=== PATIENT | female | born 1945 | race Caucasian/White ===

== ENCOUNTER → 2017-06-24 17:06 | Outpatient (CLI) | payer MEDICARE | END | disposition home or self-care (01) | LOC: D.MAMMO 16:15 | DX: Z12.31 Encounter for screening mammogram for malignant neoplasm of breast (principal) ==

== ENCOUNTER → 2017-06-26 17:36 | Outpatient (CLI) | payer MEDICARE | END | disposition home or self-care (01) | LOC: D.LABREF 17:36 | DX: N39.0 Urinary tract infection, site not specified (principal) ==

== ENCOUNTER → 2017-08-07 17:07 | Outpatient (CLI) | payer MEDICARE ==
[~2017-08-07 17:07] MED LIST: DIOVAN320 MG PO; ELIQUIS2.5 MG PO; HYDROCODONE-APA1 TAB PO; NEURONTIN 300300 MG PO; SYNTHROID88 MCG PO; XALATAN 0.0052.5 ML LEFT EYE; ZOCOR20 MG PO; ZOLOFT50 MG PO
== END | disposition home or self-care (01) ==
LOC: D.MAMMO 13:30
DX: R92.8 Other abnormal and inconclusive findings on diagnostic imaging of breast (principal)

== ENCOUNTER 2017-08-13 17:48 | Inpatient (IN) | payer MEDICARE ==
[2017-08-13 18:32] LABS: BASOPHILS 0.2 % (0-2); EOSINOPHILS 3.8 % (0-7); HEMATOCRIT 41.3 % (36.0-48.0); HEMOGLOBIN 13.6 g/dL (12-16); IMMATURE GRANULOCYTES 0.1 % (0-5); LYMPHOCYTES 16.4 % (15-50); MCH 28.9 pg (26.0-34.0); MCHC 32.9 g/dL (31.0-37.0); MCV 87.7 fL (80.0-100.0); MEAN PLATELET VOLUME 9.7 fL (7.4-10.4); MONOCYTES 8.4 % (2-11); NEUTROPHILS 71.1 % (40-80); PLATELET COUNT 209 10x3/uL (130-400); RBC 4.71 10x6/uL (4.00-5.40); RDW 13.8 % (11.5-14.5); WBC 8.7 10x3/uL (4.8-10.8)
[2017-08-13 18:42] LABS: INR 0.98 (0.85-1.17); PROTIME 12.9 SECONDS (11.6-15.0)
[2017-08-13 19:04] LABS: ALBUMIN 3.9 g/dL (3.4-5.0); ALKALINE PHOSPHATASE 75 U/L (46-116); ALT (SGPT) 18 U/L (10-68); BILIRUBIN - TOTAL 0.35 mg/dL (0.2-1.3); CALC OSMOLALITY 268 mosm/kg (275-300); CALCIUM 8.8 mg/dL (8.5-10.1); CARBON DIOXIDE 25.4 mmol/L (21.0-32.0); CHLORIDE - SERUM 99 mmol/L (98-107); CREATININE - SERUM 1.1 mg/dL (0.6-1.3); POTASSIUM - SERUM 4.2 mmol/L (3.5-5.1); SODIUM 134 mmol/L (136-145); UREA NITROGEN 16 mg/dL (7-18); eGFR NON AFRICAN AMERICAN 51 mL/min (90-120)
[2017-08-13 19:05] LABS: GLUCOSE 103 mg/dL (74-106)
[2017-08-13 19:14] LABS: CREATINE KINASE 86 UL (21-215); PRO BNP 96 pg/mL (0-125)
[2017-08-13 19:23] LABS: TROPONIN-I < 0.017 ng/mL (0.000-0.060)
[2017-08-13 21:36] LABS: APPEARANCE CLEAR (CLEAR); BILIRUBIN NEGATIVE (NEGATIVE); COLOR YELLOW (YELLOW); GLUCOSE NEGATIVE (NEGATIVE); KETONE MODERATE mg/dL (NEGATIVE); NITRITE NEGATIVE (NEGATIVE); PROTEIN NEGATIVE (NEGATIVE); UROBILINOGEN NORMAL (NORMAL)
[2017-08-13 21:46] LABS: BACTERIA FEW /hpf (NONE SEEN); EPITHELIAL CELLS 0-5 /hpf (0-5); RED CELLS - URINE 0-5 /hpf (0-5); WHITE CELLS - URINE 0-5 /hpf (0-5)
--- NOTE | 2017-08-13 22:30 | NUR ---
ASSESSMENT PER ADMIT PACKET. IV PATENT LEFT AC OF NS AT 75CC'S/HR. REC'D TO ROOM 2226 FROM ER DEPT. OLIVA TO BEDSIDE DRAINAGE WITH YELLOW URINE. REMAINS NPO FOR SURGERY.
--- NOTE | 2017-08-13 23:30 | NUR ---
YARD WAREHOUSE WORKER OF DILAUDID SET UP WITH SETTINGS AT 0.2MG Q4HR W/4MG Q4H L/O. PT C/O PAIN LEFT HIP AREA RATES PAIN A #8-10.
[2017-08-13] MEDS ORDERED: XALATAN 0.0052.5 ML LEFT EYE (23:34)
[2017-08-13] MEDS ORDERED: SYNTHROID88 MCG PO (23:34)
[2017-08-13] MEDS ORDERED: ZOCOR20 MG PO (23:35)
[2017-08-13] MEDS ORDERED: ZOLOFT50 MG PO (23:35)
[2017-08-13] MEDS ORDERED: DIOVAN320 MG PO (23:36)
[2017-08-13] MEDS ORDERED: NEURONTIN 300300 MG PO (23:37)
[2017-08-14 01:55] VITALS: BP 143/76; BMI 30.1
--- NOTE | 2017-08-14 05:00 | NUR ---
NPO FOR SURGERY PERMITS SIGNED AND ON CHART. IV PATENT LEFT AC OF NS AT 75CC'S/HR. HIBICLEANSE BATH DONE QUALITY CONTROL SPECIALIST DISCONNECTED. DR. POLANCO HERE TO SPEAK WITH PATENT. HEARING AIDES REMOVES JEWERLY REMOVED AND PLACED IN CONTAINER IN ROOM. EKG DONE AND ON CHART.
--- NOTE | 2017-08-14 05:44 | NUR ---
TO SURGERY PER BED.
[2017-08-14 06:41] VITALS: BP 140/84
--- NOTE | 2017-08-14 06:49 | NUR ---
REC'D PER BED FROM PACU POST OP LEFT HIP CLOSED REDUCTION. VS TAKEN C/O NAUSEA ZOFRAN 4MG IVP GIVEN FOR NAUSEA. MONITOR VS.
--- NOTE | 2017-08-14 07:30 | NUR ---
ASSESSMENT COMPLETE. IV TO L AC PATENT. NS INFUSING AT 30 CC/HR VIA PUMP. ERECTING ENGINEER DILAUDID 0.2-10-4 IN USE FOR PAIN CONTROL. OLIVA PATENT DRAINING YELLOW URINE. ABDUCTION PILLOW IN USE. O2 3L NC IN USE. COMPLAINING OF NAUSEA THAT IS GETTING BETTER AFTER ZOFRAN GIVEN BY NIGHT NURSE. PEDAL PULSES PRESENT.
[2017-08-14 09:18] VITALS: BP 134/75
--- NOTE | 2017-08-14 11:21 | NUR ---
Patient Name: MICHELA CARBAJAL Admission Status: ER Accout number: [id number] Admission Date: 08-13-2017 : 1945 Admission Diagnosis: Attending: OLGA POLANCO Current LOS: 1 Anticipated DC Date: 08-19-2017 Planned Disposition: Home Primary Insurance: [facility] Discharge Planning Comments: CM MET WITH PATIENT REGARDING DISCHARGE NEEDS AND PLANS. PATIENT STATED SHE LIVES WITH HER SPOUSE (INDER) AND HE WILL DRIVE HER HOME AT DISCHARGE. PATIENT STATED THERE ARE NO STEPS OR STAIRS AT HER HOME. PATIENT IS INDEPENDPENT WITH HER CARE AND HAS NO DME AT HOME. PATIENTS PCP IS DR. SHEEHAN AND PHARMACY IS [place]. PATIENT IS REFUSING HOME HEALTH AT THIS TIME. CM WILL CONTINUE TO FOLLOW PATIENT WITH D/C NEEDS AND PLANS. PCP DR. SHEEHAN [facility]- [phone] INDER (SPOUSE) [phone] Electrician Assistant: Jennifer Rider Is the patient Alert and Oriented? Yes 0 * How many steps to enter\exit or inside your home? 0 0 * PCP DR. VIDAL 0 * Pharmacy [facility] 0 * Preadmission Environment Home with Family 0 * ADLs Independent 0 * Equipment None 0 * List name and contact numbers for known caregivers / representatives who currently or will assist patient after discharge: INDER (SPOUSE) [phone] 0 * Community resources currently utilized None 0 * Additional services required to return to the preadmission environment? Yes 0 * Can the patient safely return to the preadmission environment? Yes 0 * Has this patient been hospitalized within the prior 30 days at any hospital? No 0 Grand Total: 0
--- NOTE | 2017-08-14 11:35 | NUR ---
COMPLAINING OF NAUSEA. ZOFRAN GIVEN SLOW IVP.
--- NOTE | 2017-08-14 12:00 | NUR ---
NO CHANGES NOTED AT PRESENT.
[2017-08-14 12:32] VITALS: BP 132/77
--- NOTE | 2017-08-14 15:45 | NUR ---
IV LEAKING. IV REMOVED. CATHETER TIP INTACT. IV SITED TO R HAND WITH 22 GAUGE X 2 ATTEMPTS. BRACE APPLIED BY DISHA FROM RODGER BRACE AND LIMB.
--- NOTE | 2017-08-14 17:00 | NUR ---
RESTING QUIETLY. DENIES ANY NEEDS AT THIS TIME.
[2017-08-14 17:28] VITALS: BP 137/70
[2017-08-14 20:00] VITALS: BP 90/61
--- NOTE | 2017-08-14 20:00 | NUR ---
ASSESSMENT PER FLOWSHEET. IV PATENT RT ARM OF 1/2NS AT 30CC'S/HR SITE CLEAR CQ DEVELOPER OF DILAUDID IN USE FOR PAIN CONTROL WITH SETTINGS AT 0.2MG Q10MIN W/4MG Q4HR L/O.LEFT HIP BRACE IN PLACE SR UP X2 CALL LIGHT WITHIN REACH BED ALARM BED ACTIVATED.
--- NOTE | 2017-08-14 22:00 | NUR ---
REPOSITIONED FOR COMFORT. SR UP X2 CALL LIGHT WITHIN REACH.
[2017-08-15] VITALS: BP 119/71; BP 129/62
--- NOTE | 2017-08-15 | NUR ---
EYES CLOSED RESPIRATIONS WITH EASE AND UNLABORED. O2 ON 3L/M PER NC. SCD'S ON.
[2017-08-15 04:00] VITALS: BP 119/71
--- NOTE | 2017-08-15 04:00 | NUR ---
REPOSITIONED IN BED DENIES NEEDS.
[2017-08-15 05:16] LABS: HEMOGLOBIN 12.7 g/dL (12-16); MCH 29.1 pg (26.0-34.0); MCHC 32.6 g/dL (31.0-37.0); MCV 89.4 fL (80.0-100.0); MEAN PLATELET VOLUME 9.8 fL (7.4-10.4); RBC 4.36 10x6/uL (4.00-5.40); RDW 14.3 % (11.5-14.5); WBC 10.6 10x3/uL (4.8-10.8)
--- NOTE | 2017-08-15 06:00 | NUR ---
NO CHANGES IN ASSESSMENT RESTING QUIETLY.
--- NOTE | 2017-08-15 07:20 | NUR ---
RESTING QUIETLY IN BED. DENIES ANY NEEDS AT THIS TIME.
[2017-08-15] MEDS ORDERED: ELIQUIS2.5 MG PO (08:20)
[2017-08-15] MEDS ORDERED: HYDROCODONE-APA1 TAB PO (08:21)
[2017-08-15 08:30] VITALS: BP 127/64
--- NOTE | 2017-08-15 09:00 | NUR ---
ASSESSMENT COMPLETE. IV TO R HAND PATENT. IV CONVERTED TO SL. GARMENT ALTERATION EXAMINER DILAUDID TURNED OFF. INSTRUCTED TO NOTIFY NURSE OF NEED OF PAIN MEDICATION. BRACE TO HIP IN USE. SCD'S IN USE TO BILAT LEGS.
--- NOTE | 2017-08-15 09:01 | NUR ---
OLIVA CATHETER DC'D. CATHETER TIP INTACT.
--- NOTE | 2017-08-15 10:16 | NUR ---
CM REASSESSMENT NOTE: PATIENT IS DISCHARGING HOME TODAY WITH [facility] (MASHA SIGNED). CM CHECKED AGAIN TO SEE IF SHE HAD A WALKER AND SHE STATED SHE DID. PT IS OK WITH PATIENT HAVING HOME HEALTH. PATIENTS SPOUSE IS DRIVING HER HOME TODAY. PATIENT HAD NO OTHER NEEDS FOR DISCHARGE.
--- NOTE | 2017-08-15 11:01 | NUR ---
RESTING QUIETLY IN BED. DENIES ANY COMPLAINT OF PAIN AT THIS TIME. FAMILY AT BEDSIDE. WILL DC HOME AFTER VOIDING.
--- NOTE | 2017-08-15 12:00 | NUR ---
ASSISTED UP TO BATHROOM. VOIDED WITHOUT DIFFICULTY.
[2017-08-15 12:01] VITALS: BP 113/63
--- NOTE | 2017-08-15 12:10 | NUR ---
SL REMOVED. CATHETER TIP INTACT. DISCHARGE TEACHING GIVEN TO PATIENT AND . SCRIPTS FOR ELIQUIS AND HYDROCODONE GIVEN TO PATIENT. ELIQUIS COUPON ALSO GIVEN TO PATIENT. VOICED UNDERSTANDING OF INSTRUCTIONS.
--- NOTE | 2017-08-15 12:22 | NUR ---
DC'D HOME WITH . ESCORTED TO VEHICLE BY VOLUNTEER VIA WC WITH BELONGINGS AND SCRIPTS.
--- NOTE | 2017-08-16 10:57 | OP ---
PATIENT NAME: MICHELA CARBAJAL MEDICAL RECORD: [id number] :[birth year] LOCATION:D.MS [id number] ADMISSION DATE:08/13/17 SURGEON: OLGA POLANCO MD DATE OF OPERATION: 08/13/2017 PREOPERATIVE DIAGNOSIS: Left hip dislocation, status post total hip arthroplasty. POSTOPERATIVE DIAGNOSIS: Left hip dislocation, status post total hip arthroplasty. PROCEDURE: Closed reduction under anesthesia. SURGEON: Olga Polanco MD ANESTHESIA: TIVA. INTRAOPERATIVE COMPLICATIONS: None. SUMMARY OF PATHOLOGIC FINDINGS: Essentially none. The hip was back in place and was stable and radiographs were taken and submitted for final radiologist review. Abduction pillow was applied. OPERATIVE SUMMARY IN DETAIL: After obtaining the appropriate preoperative orthopedic consents as well as anesthetic consultation, evaluation and clearance, the patient was brought to the operating room and placed on operating table in supine position. After adequate general TIVA anesthesia was administered, traction countertraction was utilized to pull the hip back into place. The hip reduced nicely. Fluoroscopy was then utilized to verify the hip in its normal position and in the acetabular cup. Having completed this, abduction pillow was applied. The patient was awakened, taken to recovery room in stable condition. All final needle and sponge counts were correct. TRANSINT:[id number] Voice Confirmation ID: [id number] DOCUMENT ID: [id number] OLGA POLANCO MD at 1057 CC: [id number] DICTATION DATE: 08/14/17 0603 RN MDS COORDINATOR: 08/14/17 0832 DIS IN 08/15/17 [id number] [place] [address]
== END 2017-08-15 12:22 | disposition home health service (06) | DRG 561 ==
LOC: D.ER 17:48 → D.MS 20:19 → D.SDCHOLD 20:19 → D.MS 08-14 00:17
PROVIDERS: Nurse Practitioner Family; ADMIT Orthopaedic Surgery
PROC: 0SWSXJZ Revision of Synthetic Substitute in Left Hip Joint, Femoral Surface, External Approach (ICD-10-PCS; principal; 2017-08-14 05:30)
DX: T84.021A Dislocation of internal left hip prosthesis, initial encounter (principal); I10 Essential (primary) hypertension; K21.9 Gastro-esophageal reflux disease without esophagitis

== ENCOUNTER → 2018-03-10 10:19 | Outpatient (CLI) | payer MEDICARE | END | disposition home or self-care (01) | LOC: D.MAMMO 09:00 | DX: Z12.31 Encounter for screening mammogram for malignant neoplasm of breast (principal) ==

== ENCOUNTER 2019-02-01 15:55 | Inpatient (IN) | payer MEDICARE ==
[2019-02-01] VITALS: BP 133/71
[~2019-02-01] VITALS: Ht 160 cm; Wt 77.0 kg
[2019-02-01] MEDS ORDERED: UNK BP MED (16:00)
[2019-02-01 16:55] LABS: BASOPHILS 0.2 % (0-2); HEMATOCRIT 37.4 % (36.0-48.0); HEMOGLOBIN 12.5 g/dL (12-16); IMMATURE GRANULOCYTES 0.1 % (0-5); LYMPHOCYTES 11.6 % (15-50); MCH 28.2 pg (26.0-34.0); MCHC 33.4 g/dL (31.0-37.0); MCV 84.2 fL (80.0-100.0); MEAN PLATELET VOLUME 9.2 fL (7.4-10.4); MONOCYTES 5.3 % (2-11); NEUTROPHILS 79.8 % (40-80); PLATELET COUNT 201 10x3/uL (130-400); RBC 4.44 10x6/uL (4.00-5.40); RDW 14.2 % (11.5-14.5); WBC 10.6 10x3/uL (4.8-10.8)
--- NOTE | 2019-02-01 17:00 | NUR ---
PT MOVED TO TRAUMA ROOM 1
[2019-02-01 17:15] LABS: ALBUMIN 3.6 g/dL (3.4-5.0); BILIRUBIN - TOTAL 0.34 mg/dL (0.2-1.3); CALCIUM 8.5 mg/dL (8.5-10.1); CARBON DIOXIDE 25.2 mmol/L (21.0-32.0); CREATININE - SERUM 1.1 mg/dL (0.6-1.3); POTASSIUM - SERUM 4.2 mmol/L (3.5-5.1); PROTEIN - SERUM 7.3 g/dL (6.4-8.2)
[2019-02-01 18:08] VITALS: BP 164/97
--- NOTE | 2019-02-01 18:26 | NUR ---
PT LAYING IN BED RESPIRATIONS ARE EVEN AND UNLABORED. NO DISTRESS NOTED AT THIS TIME. PT FAMILY MEMBER AT BEDSIDE. VSS. COLOR WNL FOR RACE. WILL CONTINUE TO MONITOR.
--- NOTE | 2019-02-01 18:49 | NUR ---
ANESTHESIA AND DR. FINCH AT BEDSIDE TO ATTEMPT TO PERFORM REDUCTION OF LEFT HIP.
--- NOTE | 2019-02-01 18:49 | NUR ---
VERSED 5MG/ FENTANYL 100MCG GIVEN IV BY DAVID COURTNEY CRNA.
--- NOTE | 2019-02-01 18:55 | NUR ---
UNNSUCCESFUL IN REDUCTION OF LEFT HIP. PER DR. PIZANO WILL PREP PATIENT FOR SURGERY.
--- NOTE | 2019-02-01 19:55 | NUR ---
ATTEMPTED TO CONTACT TO RETURN TO ED. UNABLE TO CONTACT AT THIS TIME.
[2019-02-01 21:11] VITALS: BP 153/79
--- NOTE | 2019-02-01 21:19 | NUR ---
WHILE PLACING OLIVA PATIENT WAS ALREADY IN ABDUCTION PILLOW, THIS CAUSED DIFFICULTY IN PLACING CATHETER, CATHETER PLACED PER MIKAEL JOHNSON AND LUISA LUZ.
--- NOTE | 2019-02-01 21:30 | NUR ---
RECEIVED PT TO FLOOR FROM OR. ABDUCTOR PILLOW IN PLACE. VITAL SIGNS STABLE. C/O PAIN 06/13. GAVE MORPHINE 2 MG IV PUSH. NO OTHER NEEDS. WILL CONTINUE TO MONITOR.
[2019-02-02 01:51] VITALS: BP 153/79; Ht 160 cm; Wt 77.0 kg
[2019-02-02 03:00] VITALS: BP 110/64
[2019-02-02 05:15] LABS: BASOPHILS 0.1 % (0-2); EOSINOPHILS 0.1 % (0-7); HEMATOCRIT 38.2 % (36.0-48.0); HEMOGLOBIN 12.5 g/dL (12-16); IMMATURE GRANULOCYTES 0.3 % (0-5); LYMPHOCYTES 2.7 % (15-50); MCHC 32.7 g/dL (31.0-37.0); MCV 85.5 fL (80.0-100.0); MEAN PLATELET VOLUME 9.7 fL (7.4-10.4); MONOCYTES 5.5 % (2-11); NEUTROPHILS 91.3 % (40-80); PLATELET COUNT 220 10x3/uL (130-400); RBC 4.47 10x6/uL (4.00-5.40); RDW 14.2 % (11.5-14.5)
[2019-02-02 05:25] LABS: ANION GAP 13.2 mmol/L (8-16); CALCIUM 8.2 mg/dL (8.5-10.1); CARBON DIOXIDE 25.4 mmol/L (21.0-32.0); CREATININE - SERUM 1.1 mg/dL (0.6-1.3); POTASSIUM - SERUM 3.6 mmol/L (3.5-5.1)
[2019-02-02 05:31] LABS: WBC 17.7 10x3/uL (4.8-10.8)
--- NOTE | 2019-02-02 08:07 | NUR ---
AWAKE AND ALERT. ORIENTED X3. NO C/O AT THIS TIME. LUNGS ARE CLEAR BILATERALLY, NO COUGH NOTED. SKIN IS INTACT WITHOUT REDNESS. SL TO RIGHT HAND IS PATENT WITHOUT REDNESS AT INSERTION SITE. ABDUCTION PILLOW IN PLACE. DENEIES NEEDS.
[2019-02-02 08:44] VITALS: BP 116/60
--- NOTE | 2019-02-02 09:58 | NUR ---
ATE ALL OF BREAKFAST. DENIES NEEDS. ABDUCTOR BRACE BEING FITTED AT THIS TIME.
--- NOTE | 2019-02-02 10:33 | NUR ---
OLIVA D/C WITH TIP INTACT WITHOUT DIFFICULTY. UP TO BR WITH RW ABDUCTION BRACE IN PLACE. ENCOURAGED TO NOT PUT FULL WEIGHT ON LEFT HIP.
--- NOTE | 2019-02-02 13:19 | NUR ---
DISCHARGED TO HOME AMBULATORY WITH WITH BRACE IN PLACE. DISCHARGE INSTRUCTIONS GIVEN BOTH VERBALLY AND WRITTEN. ALL QUESTIONS ANSWERED. PATIENT AND VERBALIZED UNDERSTANDING OF SAME. INSTRUCTED TO GO BY DR. FINCH'S OFFICE FOR PRESCRIPTIONS FOR PAIN MEDS. SL TO RIGHT HAND D/C WITH CATHETER INTACT. WAS UP TO BR WITH STAFF AND VOIDED WITHOUT DIFFICULTY. ALL BELONGINGS WITH PATIENT.
== END 2019-02-02 13:22 | disposition home or self-care (01) | DRG 561 ==
LOC: D.ER 15:55 → OBSVTIME 18:58 → D.EDHOLD 18:58 → D.MS 20:37
PROVIDERS: Family Medicine; ADMIT Orthopaedic Surgery; ATTEND Orthopaedic Surgery
PROC: 0SWBXJZ Revision of Synthetic Substitute in Left Hip Joint, External Approach (ICD-10-PCS; principal; 2019-02-01 20:00)
DX: T84.021A Dislocation of internal left hip prosthesis, initial encounter (principal); Y83.8 Other surgical procedures as the cause of abnormal reaction of the patient, or of later complication, without mention of misadventure at the time of the procedure; E03.9 Hypothyroidism, unspecified; I10 Essential (primary) hypertension

== ENCOUNTER 2020-01-09 19:08 | Observation (INO) | payer MEDICARE ==
[~2020-01-09] VITALS: Ht 160 cm; Wt 71.2 kg
[~2020-01-09 19:08] MED LIST changes: +UNK BP MED
[2020-01-09 21:00] VITALS: BP 145/56
--- NOTE | 2020-01-09 21:53 | NUR ---
CONSENT SIGNED FOR PROCEDURE. PT INFORMED WE ARE WAITING ON MD
--- NOTE | 2020-01-09 22:00 | NUR ---
TIME OUT FOR PROCEDURE, MD AND ANESTHSIA AT BEDSIDE.
[2020-01-09 22:29] VITALS: BP 142/68
--- NOTE | 2020-01-09 22:30 | NUR ---
PT BACK TO BASELINE. PT STATES THAT PAIN HAS IMMENSELY IMPROVED JUST FEELS SORE. INFORMED.
[2020-01-09 23:00] VITALS: BP 162/85
--- NOTE | 2020-01-09 23:00 | NUR ---
PT PLACED IN LEG ABDUCTOR PILLOW. TOLERATED WELL
--- NOTE | 2020-01-10 | NUR ---
REC'D PATIENT FROM ER. TRANS PATIENT TO BED FROM STRETCHER WITH TWO OTHER NURSES. PILLOW IN PLACE. COMPLETED ADMISSION. PLACED PUREWICK CATH. PATIENT DENIES PAIN AT THIS TIME. PATIENT DENIES OTHER NEEDS AT THIS TIME. BED IN LOWEST POSITION AND CALL LIGHT WITHIN REACH. ENCOURAGED THE PATIENT TO CALL IF SHE HAS NEEDS. WILL CONTINUE TO MONITOR.
[2020-01-10 00:06] VITALS: BP 147/76; Ht 160 cm; Wt 71.2 kg
[2020-01-10] MEDS ORDERED: AMBIEN5 MG PO (00:19)
--- NOTE | 2020-01-10 00:53 | NUR ---
BROUGHT PATIENT PILLOW PER HER REQUEST. PATIENT DENIES PAIN AT THIS TIME. BED IN LOWEST POSITION AND CALL LIGHT WITHIN REACH. ENCOURAGED THE PATIENT TO CALL IF SHE HAS NEEDS, WILL CONTINUE TO MONITOR.
--- NOTE | 2020-01-10 03:00 | NUR ---
PATIENT RESTING IN BED WITH EYES CLOSED AND NO S/S OF DISTRESS. WILL CONTINUE TO MONITOR.
[2020-01-10 05:08] VITALS: BP 139/69
--- NOTE | 2020-01-10 05:16 | NUR ---
PATIENT RESTING IN BED WITH NO S/S OF DISTRESS. PATIENT STATED SHE IS A "LITTLE ACHY" WHEN ASKED ABOUT PAIN, HOWEVER, REFUSES PAIN MEDS AT THIS TIME. BED IN LOWEST POSITION AND CALL LIGHT WITHIN REACH. ENCOURAGED THE PATIENT TO CALL IF SHE HAS NEEDS. WILL CONTINUE TO MONITOR.
[2020-01-10 05:24] LABS: BASOPHILS 0.2 % (0-2); EOSINOPHILS 0.9 % (0-7); IMMATURE GRANULOCYTES 0.2 % (0-5); LYMPHOCYTES 12.8 % (15-50); MCHC 33.3 g/dL (31.0-37.0); MCV 84.1 fL (80.0-100.0); MEAN PLATELET VOLUME 9.4 fL (7.4-10.4); MONOCYTES 10.9 % (2-11); PLATELET COUNT 256 10x3/uL (130-400); RBC 4.28 10x6/uL (4.00-5.40); RDW 14.1 % (11.5-14.5); WBC 10.2 10x3/uL (4.8-10.8)
[2020-01-10 05:45] LABS: ALBUMIN 3.4 g/dL (3.4-5.0); BILIRUBIN - TOTAL 0.37 mg/dL (0.2-1.3); CALCIUM 8.7 mg/dL (8.5-10.1); CARBON DIOXIDE 24.7 mmol/L (21.0-32.0); POTASSIUM - SERUM 4.7 mmol/L (3.5-5.1); PROTEIN - SERUM 6.6 g/dL (6.4-8.2)
--- NOTE | 2020-01-10 08:27 | NUR ---
PT ALERT X 4. BREATH SOUNDS CLEAR BILAT. IV TO LEFT FOREARM, PATENT, DRESSING CDI. PT REPORTING NO PAIN AT THIS TIME. BED LOW, CALL LIGHT IN REACH. NO OTHER NEEDS AT THIS TIME.
[2020-01-10 09:20] VITALS: BP 115/66
--- NOTE | 2020-01-10 09:43 | MORECARE ---
CASE MANAGEMENT DISCHARGE SUMMARY PATIENT: MICHELA ORDONEZ UNIT: [id number] ADM DATE: 01/09/20 AGE: 74 : 44 SEX: F ROOM/BED: D.1210 AUTHOR: PEREZ AQUINO PHYSICIAN: REFERRING PHYSICIAN: OLGA POLANCO MD DATE OF SERVICE: 01/10/20 Discharge Plan Patient Name: MICHELA ORDONEZ [facility] [facility] 1945 Planned Disposition: Anticipated Discharge Date: Discharge Date: Expected LOS: Initial Reviewer: [email or web address] Initial Review Date: 01/09/2020 Generated: 01/10/20 10:42 am Coverage Notice Reviewer: [email or web address] - Agnieszka Viveros Notice Issued Date-Time: 01/10/2020 9:23 Notice Type: Medicare Outpatient Observation Notice Notice Delivered To: Patient Relationship to Patient: Self Production Planner Scheduler Name: Michela Ordonez Delivery Method: HAND - Hand Delivered Shila Days: Prior Verbal Notification: Recipient Understood Notice: Yes Recipient Signature: Yes Med Rec Note Co-signed by Attending: Coverage Notice Comment: HARLEY delivered to and signed by patient. Original given to patient and one placed on the chart. Patient Name: MICHELA ORDONEZ Page [phone] at 0943 All edits/amendments must be made on the electronic document DICTATION DATE: 01/10/20941 APPRAISER L[place]: KATE 01/10/20941 RPT#: [id number] DC DATE: STATUS: ADM IN [facility] [address] [place] [address] END OF REPORT
--- NOTE | 2020-01-10 12:00 | NUR ---
DISCHARGE PAPERWORK SIGNED, ALL QUESTIONS ANSWERED. IV TO LEFT FOREARM DC'D, TIP INTACT. ESCORTED OUT VIA WHEELCHAIR.
--- NOTE | 2020-01-10 17:02 | MORECARE ---
CASE MANAGEMENT DISCHARGE SUMMARY PATIENT: MICHELA ORDONEZ UNIT: [id number] ADM DATE: 01/09/20 AGE: 74 : 44 SEX: F ROOM/BED: D.1210 AUTHOR: PEREZ AQUINO PHYSICIAN: REFERRING PHYSICIAN: OLGA POLANCO MD DATE OF SERVICE: 01/10/20 Discharge Plan Patient Name: MICHELA ORDONEZ Facility: [facility]:[place] : 1945 Planned Disposition: Home or Self Care Anticipated Discharge Date: 01/10/20 Discharge Date: 01/10/2020 Expected LOS: 1 Initial Reviewer: [email or web address] Initial Review Date: 01/09/2020 Generated: 01/10/20 6:02 pm Coverage Notice Reviewer: [email or web address] Vern Viveros Notice Issued Date-Time: 01/10/2020 9:23 Notice Type: Medicare Outpatient Observation Notice Notice Delivered To: Patient Relationship to Patient: Self Maintainer [employer] Name: Michela Ordonez Delivery Method: HAND - Hand Delivered Shila Days: Prior Verbal Notification: Recipient Understood Notice: Yes Recipient Signature: Yes Med Rec Note Co-signed by Attending: Coverage Notice Comment: HARLEY delivered to and signed by patient. Original given to patient and one placed on the chart. Last DP export: 01/10/20 8:43 am Patient Name: MICHELA ORDONEZ Page [phone] at 1702 All edits/amendments must be made on the electronic document DICTATION DATE: 01/10/201701 PRODUCTION TRAINER: KATE 01/10/201701 RPT#: [id number] DC DATE:01/10/20 STATUS: DIS IN [facility] [address] [place] [address] END OF REPORT
== END 2020-01-10 14:01 | disposition home or self-care (01) ==
LOC: D.ER 19:08 → D.M3 22:19 → OBSVTIME 22:19 → D.M3 22:19
PROVIDERS: Emergency Medicine; ADMIT Orthopaedic Surgery; ATTEND Orthopaedic Surgery
DX: S73.005A Unspecified dislocation of left hip, initial encounter (principal); X58.XXXA Exposure to other specified factors, initial encounter; I10 Essential (primary) hypertension

== ENCOUNTER 2020-03-02 18:31 | Observation (INO) | payer MEDICARE ==
[2020-03-02] VITALS (9 sets, daily range): BP systolic 130–182; BP diastolic 59–96; Ht 160 cm; Wt 72.7 kg
[~2020-03-02] VITALS: Ht 160 cm; Wt 72.7 kg
[~2020-03-02 18:31] MED LIST changes: +AMBIEN5 MG PO
--- NOTE | 2020-03-02 18:54 | NUR ---
PATIENT FELL EARLY THIS MORNING, IMMEDIATE PAIN TO LEFT HIP, DEFORMITY, PULSES PRESENT.
[2020-03-02 18:55] LABS: BASOPHILS 0.1 % (0-2); EOSINOPHILS 0.1 % (0-7); HEMATOCRIT 39.8 % (36.0-48.0); HEMOGLOBIN 13.4 g/dL (12-16); IMMATURE GRANULOCYTES 0.3 % (0-5); MCH 27.8 pg (26.0-34.0); MCHC 33.7 g/dL (31.0-37.0); MCV 82.6 fL (80.0-100.0); MONOCYTES 6.3 % (2-11); NEUTROPHILS 86.2 % (40-80); RBC 4.82 10x6/uL (4.00-5.40); RDW 13.8 % (11.5-14.5); WBC 12.4 10x3/uL (4.8-10.8)
[2020-03-02 19:05] LABS: ANION GAP 18.4 mmol/L (8-16); CALCIUM 9.1 mg/dL (8.5-10.1); CARBON DIOXIDE 21.4 mmol/L (21.0-32.0); POTASSIUM - SERUM 3.8 mmol/L (3.5-5.1)
[2020-03-02 19:11] LABS: PLATELET COUNT 310 10x3/uL (130-400)
[2020-03-02 19:12] LABS: ALBUMIN 3.7 g/dL (3.4-5.0); BILIRUBIN - TOTAL 0.55 mg/dL (0.2-1.3); PROTEIN - SERUM 7.4 g/dL (6.4-8.2)
--- NOTE | 2020-03-02 19:15 | NUR ---
DR. FALLON TO BEDSIDE, CONSENT PACKET PRINTED AND SIGNED. MOVED TO T3
--- NOTE | 2020-03-02 19:39 | NUR ---
LEFT HIP REDUCTION, MD AND ANESTHSIA TO BEDSIDE, PT STABLE
--- NOTE | 2020-03-02 19:39 | NUR ---
TIME OUT DONE, PATIENT, DOCTOR, ANESTHSIA, X-RAY AA
--- NOTE | 2020-03-02 19:44 | NUR ---
LEFT HIP IN PLACE, X-RAY TECH AT BEDSIDE,
--- NOTE | 2020-03-02 19:50 | NUR ---
ANESTHSIA AT BEDSIDE, PROCEDURE FINISHED.
--- NOTE | 2020-03-02 19:56 | NUR ---
PATIENT IS A + O X3, VITAL SIGNS STABLE,
--- NOTE | 2020-03-02 20:08 | NUR ---
PATIENT VERBALIZES APPROPRIATELY, CALLING HER SON FROM HER CELL PHONE, DENIES PAIN AT THIS TIME.
--- NOTE | 2020-03-02 20:13 | NUR ---
PATIENT IS STABLE, STILL ON HER CELL PHONE TALKING WITH HER SON
--- NOTE | 2020-03-02 20:21 | NUR ---
RN HAS STAYED AT BEDSIDE WITH PATIENT, PATIENT DENIES PAIN AT THIS TIME, VITAL SIGNS STABLE,
--- NOTE | 2020-03-02 21:15 | NUR ---
PT BROUGHT TO FLOOR VIA STRETCHER, A0X4. HIP ADDUCTOR PILLOW IN PLACE. TRANSFERED PT TO BED. POSITION FOR COMFORT. PUREWICK PLACED. NON SLIP SOCKS AND PLEXI BOOTS PLACED ON. IV RIGHT AC SL, FLUSHES EASILY. DENIES PAIN AT THIS TIME. O2 2L/NC. PROVIDED PT WITH PUDDING AND WATER. PT HAS HEARING AIDS IN, SET UP DYE BLENDER AND PHONE WITH DYE BLENDER AT BEDSIDE. PT DENIES OTHER NEEDS AT THIS TIME. CL IN REACH, WILL CTM
[2020-03-02] MEDS ORDERED: PROTONIX40 MG PO (21:26)
[2020-03-02] MEDS ORDERED: INDOCIN25 MG PO (21:26)
[2020-03-02] MEDS ORDERED: CRESTOR5 MG PO (21:26)
[2020-03-02] MEDS ORDERED: DIOVAN160 MG PO (21:27)
[2020-03-02] MEDS ORDERED: NORVASC2.5 MG PO (21:28)
--- NOTE | 2020-03-02 23:00 | NUR ---
NURSE PRACTIONER AT BEDSIDE AT THIS TIME TO SEE PT
[2020-03-03] VITALS: BP 129/66
--- NOTE | 2020-03-03 00:25 | NUR ---
PT LYING IN BED RESTING WITHOUT DISTRESS OR NEEDS, WILL CTM
[2020-03-03 04:00] VITALS: BP 144/66
--- NOTE | 2020-03-03 05:10 | NUR ---
REPOSITIONED PT FOR COMFORT, ADDUCTOR PILLOW IN PLACE. DENIES OTHER NEEDS. CL IN REACH, WILL CTM
[2020-03-03 05:51] LABS: BASOPHILS 0.3 % (0-2); HEMATOCRIT 38.8 % (36.0-48.0); HEMOGLOBIN 12.6 g/dL (12-16); IMMATURE GRANULOCYTES 0.2 % (0-5); LYMPHOCYTES 12.7 % (15-50); MCH 27.6 pg (26.0-34.0); MCHC 32.5 g/dL (31.0-37.0); MEAN PLATELET VOLUME 9.1 fL (7.4-10.4); MONOCYTES 11.6 % (2-11); NEUTROPHILS 74.2 % (40-80); PLATELET COUNT 294 10x3/uL (130-400); RBC 4.56 10x6/uL (4.00-5.40); RDW 14.4 % (11.5-14.5); WBC 9.6 10x3/uL (4.8-10.8)
[2020-03-03 05:53] LABS: MCV 85.1 fL (80.0-100.0)
[2020-03-03 06:09] LABS: ANION GAP 11.4 mmol/L (8-16); CALCIUM 8.9 mg/dL (8.5-10.1); CARBON DIOXIDE 25.6 mmol/L (21.0-32.0); MAGNESIUM - SERUM 2.2 mg/dL (1.8-2.4)
[2020-03-03 07:22] VITALS: BP 129/67
--- NOTE | 2020-03-03 07:35 | NUR ---
AWAKE AND ALERT. ORIENTED X3. NO C/O AT THIS TIME. LUNGS ARE CLEAR BILATERALLY, NO COUGH NOTED. SKIN IS INTACT WITHOUT REDNESS. PUREWICK IN PLACE WITH CLEAR YELLOW URINE. SL TO RIGHT AC IS PATENT WITHOUT REDNESS AT INSERTION SITE. DENIES NEEDS. BREAKFAST SERVED IN ROOM.
--- NOTE | 2020-03-03 09:45 | NUR ---
AMBULATED IN HALLWAY WITH PT WITH ABDUCTOR BRACE IN PLACE. SITTING UP IN CHAIR AT BEDSIDE.
--- NOTE | 2020-03-03 11:00 | NUR ---
DISCHARGE ORDERS RECEIVED. SL TO RIGHT AC D/C WITH CATHETER INTACT. ANXIOUS TO GET HOME.
--- NOTE | 2020-03-03 12:00 | NUR ---
DISCHARGED TO HOME WITH SON AMBULATORY. ABDUCTOR BRACE IN PLACE TO LEFT HIP. DISCHARGE INSTRUCTIONS GIVEN BOTH VERBALLY AND WRITTEN. PATIENT VERBALIZED UNDERSTANDING OF SAME. ALL QUESTIONS ANSWERED. NO NEW PRESCRIPTIONS NEEDED. ALL BELONGING WITH PATIENT.
== END 2020-03-03 12:00 | disposition home or self-care (01) ==
LOC: D.ER 18:31 → D.M3 20:26 → OBSVTIME 20:26 → D.M3 03-03 12:00
PROVIDERS: Family Medicine; ADMIT Family Medicine; ATTEND Family Medicine
DX: T84.021A Dislocation of internal left hip prosthesis, initial encounter (principal); X58.XXXA Exposure to other specified factors, initial encounter; I10 Essential (primary) hypertension; E78.5 Hyperlipidemia, unspecified; E03.9 Hypothyroidism, unspecified; G47.00 Insomnia, unspecified; F32.9 Major depressive disorder, single episode, unspecified; E87.1 Hypo-osmolality and hyponatremia

== ENCOUNTER → 2020-03-10 17:40 | Outpatient (CLI) | payer MEDICARE ==
[2020-03-02 21:33] VITALS: BMI 28.4
[~2020-03-10 17:40] MED LIST changes: +CRESTOR5 MG PO; +DIOVAN160 MG PO; +INDOCIN25 MG PO; +NORVASC2.5 MG PO; +PROTONIX40 MG PO
== END | disposition home or self-care (01) ==
LOC: D.LABREF 17:40
PROVIDERS: ATTEND Orthopaedic Surgery
DX: M16.12 Unilateral primary osteoarthritis, left hip (principal)

== ENCOUNTER 2020-03-14 12:52 | Inpatient (IN) | payer MEDICARE ==
[~2020-03-14] VITALS: Ht 157.5 cm; Wt 71.7 kg
[2020-03-30 12:12] LABS: BASOPHILS 0.2 % (0-2); HEMATOCRIT 40.4 % (36.0-48.0); HEMOGLOBIN 13.3 g/dL (12-16); IMMATURE GRANULOCYTES 0.3 % (0-5); LYMPHOCYTES 16.1 % (15-50); MCH 27.7 pg (26.0-34.0); MCHC 32.9 g/dL (31.0-37.0); MEAN PLATELET VOLUME 9.1 fL (7.4-10.4); MONOCYTES 6.9 % (2-11); NEUTROPHILS 74.5 % (40-80); PLATELET COUNT 253 10x3/uL (130-400); RBC 4.81 10x6/uL (4.00-5.40); RDW 13.8 % (11.5-14.5); WBC 9.7 10x3/uL (4.8-10.8)
[2020-03-30 12:20] LABS: BILIRUBIN NEGATIVE (NEGATIVE); GLUCOSE NEGATIVE (NEGATIVE); KETONE NEGATIVE (NEGATIVE); NITRITE NEGATIVE (NEGATIVE); UROBILINOGEN NORMAL (NORMAL)
[2020-03-30 12:32] LABS: ANION GAP 9.3 mmol/L (8-16); CALCIUM 9.2 mg/dL (8.5-10.1); CARBON DIOXIDE 29.8 mmol/L (21.0-32.0); CREATININE - SERUM 0.9 mg/dL (0.6-1.3); POTASSIUM - SERUM 4.1 mmol/L (3.5-5.1)
[2020-03-30 13:00] LABS: INR 1.01 (0.85-1.17); PROTIME 13.3 SECONDS (11.6-15.0)
[2020-03-30 13:01] LABS: APTT 31.4 SECONDS (22.8-39.4)
[2020-04-05 11:39] VITALS: BP 134/68; BMI 28.9
--- NOTE | 2020-04-05 18:13 | NUR ---
LEFT HIO PREPPED WITH HIBICLENS AND ALCOHOL PRIOR TO HLORAPREP. BOVIE PAD RIGHT THIGH. [id number] EXP 08/20/21 PLASMA BLADE SET TO 6/8 TRAFFIC MONITORED IN AND OUT OF ROOM AND KEPT TO A MINIMUM
[2020-04-05 20:00] VITALS: BP 146/70
--- NOTE | 2020-04-05 20:17 | NUR ---
PT ARRIVES TO ROOM VIA BED TRANSPORTED BY RECOVERY ROOM NURSE. PT IS AAO X 4 AND DENIES PRESENCE OF PAIN TO LEFT HIP AT THIS TIME. VSS. FAMIYL AT BEDSIDE WITH APPROPRIATE COLOR COVID SCREEN BRACELETS ON. SCDS PLACED ON BLE AND MACHINE TURNED ON AND WORKING. INCENTIVE SPIROMETER AT BEDSIDE. EDUCATION GIVEN ON IS AND PT VERBALIZES UNDERSTANDING. ICE WATER GIVEN PER PT REQUEST. ALL FALL PRECAUTIONS ARE IN PLACE. BED IS IN THE LOWEST POSITION. CALL LIGHT AND BEDSIDE TABLE ARE WITHIN REACH. SIDE RAILS X 2. PT DENIES FURTHER NEEDS. WILL NOTIFY SHIFT NURSE OF PATIENT ARRIVAL.
--- NOTE | 2020-04-05 20:30 | NUR ---
ADMITTED TO ROOM FROM RECOVERY, ALERT AND ORIENTIATED, VSS GOOD PEDAL PULSES ABLE TO MOVE TOES TO LEFT FOOT, DRESSING TO UPPER THIGH C/D/I. DENIES PAIN OR NEEDS AT THISA TIME, SEE ADMISSION ASSESSMENT, CALL LIGHT IN REACH
[2020-04-05 21:49] VITALS: BP 155/72; BMI 28.9
--- NOTE | 2020-04-05 23:30 | NUR ---
VOIDED LARGE AMOUNT VIA BEDPAN
[2020-04-06 00:12] VITALS: BP 114/63
[2020-04-06 04:00] VITALS: BP 98/48
[2020-04-06 07:21] LABS: HEMATOCRIT 32.8 % (36.0-48.0); HEMOGLOBIN 10.6 g/dL (12-16); MCH 27.2 pg (26.0-34.0); MCHC 32.3 g/dL (31.0-37.0); MCV 84.1 fL (80.0-100.0); MEAN PLATELET VOLUME 9.6 fL (7.4-10.4); RBC 3.9 10x6/uL (4.00-5.40); RDW 14.3 % (11.5-14.5)
--- NOTE | 2020-04-06 07:45 | NUR ---
PT RESTING QUIETLY IN BED. RESP EVEN AND UNLABORED. DENIES PAIN AT THIS TIME. IV TO RIGHT HAND WITH 1/2 NS @ 50ML/HR INFUSING VIA PUMP. SITE WITHOUT REDNESS OR EDEMA. DRESSING C/D/I TO LEFT GROIN. SITE WITHOUT REDNESS OR EDEMA. DENIES FURTHER NEEDS AT THIS TIME. CL WITHIN REACH. ENCOURAGED TO CALL WITH NEEDS. CONTINUE POC
[2020-04-06 08:00] VITALS: BP 102/50
--- NOTE | 2020-04-06 08:28 | OP ---
PATIENT NAME: MICHELA ORDONEZ MEDICAL RECORD: [id number] :43 LOCATION:D.M3 D.1210 ADMISSION DATE:04/05/20 SURGEON: LUÍS FALLON DO DATE OF OPERATION: 04/05/2020 PROCEDURE PERFORMED: Revision left total hip arthroplasty. PREOPERATIVE DIAGNOSIS: Left hip periprosthetic dislocations and instability. POSTOPERATIVE DIAGNOSIS: Left hip periprosthetic dislocations and instability. INDICATIONS: Ms. Ordonez is a 74-year-old female who has had several I believe 5 dislocations in the recent past. Over the last year, she has been reduced closed luckily and she has been wearing an abductor brace. She is tired of dealing with that and having to do that constantly. I informed her that we would plan on doing a revision and do a constrained liner if that were possible. If not, we have to redo the cup and hopefully not take out the stem or revise the entire thing. She was aware of that and aware of the risks including fracture, bleeding, damage to nerves and vessels, continued instability, continued pain, blood clots, damage to femoral nerve, infection, failure of implants complication with implants and blood clots, and even and she signed the consent. SURGEON: Luís Fallon DO DESCRIPTION OF PROCEDURE: The patient was taken to the operative suite, laid in supine position and given general anesthetic and sedated and intubated. She was given 2 grams Ancef and 80 mg gentamicin preoperatively. She was then positioned over on the [place] table, given a gram of TXA. Then, she was positioned on the [place] table. The left lower extremity was prepped and draped in sterile fashion. Timeout was performed and everyone was in agreement with the correct side, site, patient, and procedure and then began by making an incision over tensor fasciae piper muscle. Careful dissection was made down to the muscle itself. The fascia was taken into the muscle belly posteriorly. Rectus interval was opened and then the rectus was taken medially, the tensor fascia piper laterally. The ascending branch of the lateral femoral circumflex artery was encountered and tied off and then coagulated and cut. We then opened up the capsule anteriorly and dislocated the hip anteriorly. I then impacted off the head from the old hip prosthesis and removed some soft tissue that was anterior to the hip as well and sent to pathology. I then removed the poly liner that was in the cup and the acetabulum at that time. Once that was removed, cleaned up around the cuffs more and removed all the pieces of poly that were around the soft tissue and irrigated thoroughly. I then put in the Trilogy constrained liner and put on the new head with a +7 neck, which is what she had prior to this and reduced the hip. I then put on the ring for around the liner to lock it in so to speak, this popped on very well and was even throughout the poly. Once that was completed, I ranged the hip and brought it to full flexion and internal rotation and there was no subluxation even of the head out of the poly, throughout other range of motion including internal and external rotation at neutral. I then irrigated with 10% proton at6cbev and 500 mL normal saline solution. It was set for 3 minutes and then irrigated that with more than a liter of normal saline. I then closed the capsule anteriorly with #2 Ethibond in a [id number]-[id number] fashion. The Katelynn, vancomycin, and tobramycin powder was then placed in the hip and then the tensor fascia piper fascia was closed with #1 Vicryl, first in [id number]-[id number]-vvjao and then a running OPERATIVE REPORT [id number] MICHELA ORDONEZ locking stitch. I then closed the skin with 2-0 Vicryl in inverted interrupted fashion, 4-0 Monocryl ran on the skin and Prineo glue placed on the skin. She was then dressed with Telfa and Tegaderm. She was given a gram of TXA prior to starting the case and one at closing. She was then awakened and taken to recovery in stable condition. BLOOD LOSS: Approximately 100 mL. COMPLICATIONS: None. TRANSINT:[id number] Voice Confirmation ID: [id number] DOCUMENT ID: [id number] LUÍS FALLON DO at 0828 CC: [id number] DICTATION DATE: 04/05/201924 APERTURE MASK ETCHER: 04/06/20 0706 ADM IN [facility] [address] [place] [address]
--- NOTE | 2020-04-06 09:45 | NUR ---
PT AMBULATING IN HALLWAY WITH PT. EDWIN ELI
--- NOTE | 2020-04-06 10:46 | MORECARE ---
CASE MANAGEMENT DISCHARGE SUMMARY PATIENT: MICHELA ORDONEZ UNIT: [id number] ADM DATE: 04/05/20 AGE: 74 : 44 SEX: F ROOM/BED: D.1210 AUTHOR: PEREZ AQUINO PHYSICIAN: REFERRING PHYSICIAN: KEELY FALLON DO DATE OF SERVICE: 04/06/20 Discharge Plan Patient Name: MICHELA ORDONEZ Facility: [facility]:[place] : 1945 Planned Disposition: Home Health Service Anticipated Discharge Date: 04/07/20 Discharge Date: Expected LOS: 2 Initial Reviewer: [email or web address] Initial Review Date: 04/05/2020 Generated: 04/06/20 11:46 am Coverage Notice Reviewer: [email or web address] Vern Viveros Notice Issued Date-Time: 04/06/2020 10:39 Notice Type: Patient Choice Letter Notice Delivered To: Patient Relationship to Patient: Self Merchandise Flow Manager Name: Michela Ordonez Delivery Method: MAIL - Mail Shila Days: Prior Verbal Notification: Recipient Understood Notice: Yes Recipient Signature: Yes Med Rec Note Co-signed by Attending: Coverage Notice Comment: Patient choice for [facility] signed, delivered to patient. Original to chart. Patient Name: MICHELA ORDONEZ Page [phone] at 1046 All edits/amendments must be made on the electronic document DICTATION DATE: 04/06/20 1046 FURNITURE ARRANGER: KATE 04/06/20 1046 RPT#: [id number] DC DATE: STATUS: ADM IN [facility] [address] [place] [address] END OF REPORT
--- NOTE | 2020-04-06 10:53 | MORECARE ---
CASE MANAGEMENT DISCHARGE SUMMARY PATIENT: MICHELA ORDONEZ UNIT: [id number] ADM DATE: 04/05/20 AGE: 74 : 44 SEX: F ROOM/BED: D.1210 AUTHOR: PEREZ AQUINO PHYSICIAN: REFERRING PHYSICIAN: LUÍS FALLON DO DATE OF SERVICE: 04/06/20 Discharge Plan Patient Name: MICHELA ORDONEZ Facility: [facility]:[place] : 1945 Planned Disposition: Home Health Service Anticipated Discharge Date: 04/07/20 Discharge Date: Expected LOS: 2 Initial Reviewer: [email or web address] Initial Review Date: 04/05/2020 Generated: 04/06/20 11:53 am DCPIA - Discharge Planning Initial Assessment Updated by [email or web address]: Agnieszka Viveros on 04/06/20 10:48 am * Is the patient Alert and Oriented? Yes * How many steps to enter\exit or inside your home? * PCP Dr. White * Pharmacy [facility] * Preadmission Environment Home Alone * ADLs Independent * Equipment Bedside Commode * Other Equipment Walker w/seat * List name and contact numbers for known caregivers / representatives who currently or will assist patient after discharge: Luís Ordonez (son) [phone] Fortune (G-dtr) [phone] * Please name any agencies selected above. [facility] * Additional services required to return to the preadmission environment? Yes * Can the patient safely return to the preadmission environment? Yes * Has this patient been hospitalized within the prior 30 days at any hospital? No Coverage Notice Reviewer: [id number] - Agnieszka Viveros Notice Issued Date-Time: 04/06/2020 10:39 Notice Type: Patient Choice Letter Notice Delivered To: Patient Relationship to Patient: Self Supervisor Counseling And Guidance Name: Michela Ordonez Delivery Method: MAIL - Mail Shila Days: Prior Verbal Notification: Recipient Understood Notice: Yes Recipient Signature: Yes Med Rec Note Co-signed by Attending: Coverage Notice Comment: Patient choice for [facility] signed, delivered to patient. Original to chart. Last DP export: 04/06/20 9:46 am Patient Name: MICHELA ORDONEZ Page [phone] at 1053 All edits/amendments must be made on the electronic document DICTATION DATE: 04/06/20 105 RIBBON BLOCKER: KATE 04/06/20 1053 RPT#: [id number] DC DATE: STATUS: ADM IN [facility] [address] [place] [address] END OF REPORT
--- NOTE | 2020-04-06 11:09 | NUR ---
PT SITTING IN CHAIR AT BEDSIDE. RESP EVEN AND UNLABORED. DENIES PAIN AT THIS TIME. DENIES FURTHER NEEDS AT THIS TIME. CL WITHIN REACH. ENCOURAGED TO CALL WITH NEEDS.
--- NOTE | 2020-04-06 11:22 | MORECARE ---
CASE MANAGEMENT DISCHARGE SUMMARY PATIENT: MICHELA ORDONEZ UNIT: [id number] ADM DATE: 04/05/20 AGE: 74 : 44 SEX: F ROOM/BED: D.1210 AUTHOR: PEREZ AQUINO PHYSICIAN: REFERRING PHYSICIAN: LUÍS FALLON DO DATE OF SERVICE: 04/06/20 Discharge Plan Patient Name: MICHELA ORDONEZ Facility: [facility]:[place] : 1945 Planned Disposition: Home Health Service Anticipated Discharge Date: 04/07/20 Discharge Date: Expected LOS: 2 Initial Reviewer: [email or web address] Initial Review Date: 04/05/2020 Generated: 04/06/20 12:21 pm DCP- Discharge Planning Updated by [email or web address]: Agnieszka Viveros on 04/06/20 10:[address] DC Plan: [facility]. Patient has her DME. Qamdmx-mh-awd , Snow Moreno will stay with the patient for approximately 2 weeks. Patient's son does laundry, changes sheets for patient every week. Patient is recently and states she has a good family support. CM met with patient to discuss initial discharge planning. Patient is in agreement to proceed with the assessment. Patient reports that she lives at home independently, alone. Patient is alert/oriented. Stairs/steps: 1, split level home (does not go down to second level). PCP: Dr. White. Pharmacy: [facility]. Patient states she has been able to obtain all of her prescribed medications. HHS: Request [facility]. DME: Keshawn ZEPEDA w/jae, BSC. Patient gives permission to speak with family members. Emergency contact: Luís Ordonez (son) [phone], Shirin Ordonez (G-dtr) [phone]. Patient is Independent with all ADL's, medication management PMO LEAD. Patient feels safe returning to previous environment. CM discussed HHS, OP Therapy, Rehab, SNF with patient and her choice is HHS at this time. Patient denies hospitalization within the past 30 days. Patient denies the use of community resources PMO LEAD. Transportation at time of discharge: Son, G-dtr or ykpiwa-xz-hph. DCPIA - Discharge Planning Initial Assessment Updated by [email or web address]: Agnieszka Viveros on 04/06/20 10:48 am * Is the patient Alert and Oriented? Yes * How many steps to enter\exit or inside your home? * PCP Dr. White * Pharmacy [facility] * Preadmission Environment Home Alone * ADLs Independent * Equipment Bedside Commode * Other Equipment Walker w/seat * List name and contact numbers for known caregivers / representatives who currently or will assist patient after discharge: Luís Ordonez (son) [phone] Fortune (G-dtr) [phone] * Please name any agencies selected above. [facility] * Additional services required to return to the preadmission environment? Yes * Can the patient safely return to the preadmission environment? Yes * Has this patient been hospitalized within the prior 30 days at any hospital? No Coverage Notice Reviewer: [id number] - Agnieszka Viveros Notice Issued Date-Time: 04/06/2020 10:39 Notice Type: Patient Choice Letter Notice Delivered To: Patient Relationship to Patient: Self Lead Programmer Name: Michela Ordonez Delivery Method: MAIL - Mail Shila Days: Prior Verbal Notification: Recipient Understood Notice: Yes Recipient Signature: Yes Med Rec Note Co-signed by Attending: Coverage Notice Comment: Patient choice for [facility] signed, delivered to patient. Original to chart. Last DP export: 04/06/20 9:53 am Patient Name: MICHELA ORDONEZ Page [phone] at 1122 All edits/amendments must be made on the electronic document DICTATION DATE: 04/06/20 1121 INDUSTRIAL DESIGN INTERN: KATE 04/06/20 1121 RPT#: [id number] DC DATE: STATUS: ADM IN [facility] [address] [place] [address] END OF REPORT
[2020-04-06 11:23] VITALS: BP 98/58
--- NOTE | 2020-04-06 13:10 | MORECARE ---
CASE MANAGEMENT DISCHARGE SUMMARY PATIENT: MICHELA ORDONEZ UNIT: [id number] ADM DATE: 04/05/20 AGE: 74 : 44 SEX: F ROOM/BED: D.1210 AUTHOR: MILESDOC PHYSICIAN: REFERRING PHYSICIAN: LUÍS FALLON DO DATE OF SERVICE: 04/06/20 Discharge Plan Patient Name: MICHELA ORDONEZ Facility: [facility]:[place] : 1945 Planned Disposition: Home Health Service Anticipated Discharge Date: 04/07/20 Discharge Date: Expected LOS: 2 Initial Reviewer: [id number] Initial Review Date: 04/05/2020 Generated: 04/06/20 2:10 pm Comments DCP- Discharge Planning Updated by [email or web address]: Agnieszka Viveros on 04/06/20 12:[address] DC Plan: [facility]. HHS will begin Saturday with PT. Patient has her DME. Ruupyo-sd-vmn , Snow Moreno will stay with the patient for approximately 2 weeks. Patient's son does laundry, changes sheets for patient every week. Patient is recently and states she has a good family support. CM met with patient to discuss initial discharge planning. Patient is in agreement to proceed with the assessment. Patient reports that she lives at home independently, alone. Patient is alert/oriented. Stairs/steps: 1, split level home (does not go down to second level). PCP: Dr. White. Pharmacy: [facility]. Patient states she has been able to obtain all of her prescribed medications. HHS: [facility]. DME: Keshawn ZEPEDA w/seat, BSC. Patient gives permission to speak with family members. Emergency contact: Luís Ordonez (son) [phone], Shirin Ordonez (G-dtr) [phone]. 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 Patient feels safe returning to previous environment. CM discussed HHS, OP Therapy, Rehab, SNF with patient and her choice is HHS at this time. Patient denies hospitalization within the past 30 days. Patient denies the use of community resources GEOTECHNICIAN. Transportation at time of discharge: Son, G-dtr or [id number]-[id number]. DCPIA - Discharge Planning Initial Assessment Updated by [email or web address]: Agnieszka Viveros on 04/06/20 10:48 am * Is the patient Alert and Oriented? Yes * How many steps to enter\exit or inside your home? * PCP Dr. White * Pharmacy [facility] * Preadmission Environment Home Alone * ADLs Independent * Equipment Bedside Commode * Other Equipment Walker w/seat * List name and contact numbers for known caregivers / representatives who currently or will assist patient after discharge: Luís Ordonez (son) [phone] Fortune (G-dtr) [phone] * Please name any agencies selected above. [facility] * Additional services required to return to the preadmission environment? Yes * Can the patient safely return to the preadmission environment? Yes * Has this patient been hospitalized within the prior 30 days at any hospital? No Coverage Notice Reviewer: [id number] - Agnieszka Viveros Notice Issued Date-Time: 04/06/2020 10:39 Notice Type: Patient Choice Letter Notice Delivered To: Patient Relationship to Patient: Self Production Line Name: Michela Ordonez Delivery Method: MAIL - Mail Shila Days: Prior Verbal Notification: Recipient Understood Notice: Yes Recipient Signature: Yes Med Rec Note Co-signed by Attending: Coverage Notice Comment: Patient choice for [facility] signed, delivered to patient. Original to chart. Last DP export: 04/06/20 10:22 am Patient Name: MICHELA ORDONEZ Page [phone] at 1310 All edits/amendments must be made on the electronic document DICTATION DATE: 04/06/20 1310 LOSS PREVENTION OFFICER: KATE 04/06/20 1310 RPT#: [id number] DC DATE: STATUS: ADM IN [facility] [address] [place] [address] END OF REPORT
--- NOTE | 2020-04-06 13:17 | NUR ---
PT AMBULATING IN THE HALLWAY WITH PT. PT EDWIN WELL
--- NOTE | 2020-04-06 13:25 | MORECARE ---
CASE MANAGEMENT DISCHARGE SUMMARY PATIENT: MICHELA ORDONEZ UNIT: [id number] ADM DATE: 04/05/20 AGE: 74 : 44 SEX: F ROOM/BED: D.1210 AUTHOR: MILESDOC PHYSICIAN: REFERRING PHYSICIAN: LUÍS FALLON DO DATE OF SERVICE: 04/06/20 Discharge Plan Patient Name: MICHELA ORDONEZ Facility: [facility]:[place] : 1945 Planned Disposition: Home Health Service Anticipated Discharge Date: 04/07/20 Discharge Date: Expected LOS: 2 Initial Reviewer: [email or web address] Initial Review Date: 04/05/2020 Generated: 04/06/20 2:24 pm Comments DCP- Discharge Planning Updated by [email or web address]: Agnieszka Viveros on 04/06/20 12:[address] DC Plan: [facility]. HHS will begin Saturday with PT. Patient has her DME. Rnrvcu-yn-yev , Snow Moreno will stay with the patient for approximately 2 weeks. Patient's son does laundry, changes sheets for patient every week. Patient is recently and states she has a good family support. CM met with patient to discuss initial discharge planning. Patient is in agreement to proceed with the assessment. Patient reports that she lives at home independently, alone. Patient is alert/oriented. Stairs/steps: 1, split level home (does not go down to second level). PCP: Dr. Whtie. Pharmacy: [facility]. Patient states she has been able to obtain all of her prescribed medications. [facility]: [facility]. DME: Keshawn ZEPEDA w/seat, BSC. Patient gives permission to speak with family members. Emergency contact: Luís Ordonez (son) [phone], Shirin Ordonez (G-dtr) [phone]. 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 Patient feels safe returning to previous environment. CM discussed HHS, OP Therapy, Rehab, SNF with patient and her choice is [facility] at this time. Patient denies hospitalization within the past 30 days. Patient denies the use of community resources TELEGRAPH REPEATER MECHANIC. Transportation at time of discharge: Son, G-dtr or tuwawa-xu-inv. DCPIA - Discharge Planning Initial Assessment Updated by [email or web address]: Agnieszka Viveros on 04/06/20 10:48 am * Is the patient Alert and Oriented? Yes * How many steps to enter\exit or inside your home? * PCP Dr. White * Pharmacy [facility] * Preadmission Environment Home Alone * ADLs Independent * Equipment Bedside Commode * Other Equipment Walker w/seat * List name and contact numbers for known caregivers / representatives who currently or will assist patient after discharge: Luís Ordonez (son) [phone] Fortune (G-dtr) [phone] * Please name any agencies selected above. [facility] * Additional services required to return to the preadmission environment? Yes * Can the patient safely return to the preadmission environment? Yes * Has this patient been hospitalized within the prior 30 days at any hospital? No Coverage Notice Reviewer: [id number] - Agnieszka Viveros Notice Issued Date-Time: 04/06/2020 10:39 Notice Type: Patient Choice Letter Notice Delivered To: Patient Relationship to Patient: Self Personal Care Aide Name: Michela Ordonez Delivery Method: MAIL - Mail Shila Days: Prior Verbal Notification: Recipient Understood Notice: Yes Recipient Signature: Yes Med Rec Note Co-signed by Attending: Coverage Notice Comment: Patient choice for [facility] signed, delivered to patient. Original to chart. Last DP export: 04/06/20 12:10 pm Patient Name: MICHELA ORDONEZ Page [phone] at 1325 All edits/amendments must be made on the electronic document DICTATION DATE: 04/06/20 1324 FREIGHT ADJUSTER: KATE 04/06/20 1324 RPT#: [id number] DC DATE: STATUS: ADM IN [facility] [address] [place] [address] END OF REPORT
[2020-04-06 14:49] VITALS: Ht 157.5 cm; Wt 71.7 kg
[2020-04-06 15:50] VITALS: BP 130/64
[2020-04-06] MEDS ORDERED: ELIQUIS2.5 MG PO (16:28)
[2020-04-06] MEDS ORDERED: HYDROCODON-ACE1 EA10 PO (16:29)
[2020-04-06] MEDS ORDERED: KEFLEX500 MG PO (16:30)
--- NOTE | 2020-04-07 07:39 | MORECARE ---
CASE MANAGEMENT DISCHARGE SUMMARY PATIENT: MICHELA ORDONEZ UNIT: [id number] ADM DATE: 04/05/20 AGE: 74 : 44 SEX: F ROOM/BED: D.1210 AUTHOR: PEREZ AQUINO PHYSICIAN: REFERRING PHYSICIAN: LUÍS FALLON DO DATE OF SERVICE: 04/07/20 Discharge Plan Patient Name: MICHELA ORDONEZ Facility: [facility]:[place] : 1945 Planned Disposition: Home Health Service Anticipated Discharge Date: 04/07/20 Discharge Date: 04/06/2020 Expected LOS: 2 Initial Reviewer: [id number] Initial Review Date: 04/05/2020 Generated: 04/07/20 8:39 am Comments DCP- Discharge Planning Updated by [email or web address]: Agnieszka Viveros on 04/06/20 12:[address] DC Plan: [facility]. HHS will begin Saturday with PT. Patient has her DME. Afypor-ek-xqn , Snow Moreno will stay with the patient for approximately 2 weeks. Patient's son does laundry, changes sheets for patient every week. Patient is recently and states she has a good family support. CM met with patient to discuss initial discharge planning. Patient is in agreement to proceed with the assessment. Patient reports that she lives at home independently, alone. Patient is alert/oriented. Stairs/steps: 1, split level home (does not go down to second level). PCP: Dr. White. Pharmacy: [facility]. Patient states she has been able to obtain all of her prescribed medications. HHS: Request [facility]. DME: Keshawn ZEPEDA w/seat, BSC. Patient gives permission to speak with family members. Emergency contact: Luís Ordonez (son) [phone], Shirin Ordonez (G-dtr) [phone]. 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 Patient feels safe returning to previous environment. CM discussed HHS, OP Therapy, Rehab, SNF with patient and her choice is H[facility] at this time. Patient denies hospitalization within the past 30 days. Patient denies the use of community resources IT OPERATIONS SPECIALIST. Transportation at time of discharge: Son, G-dtr or [id number]-[id number]. DCPIA - Discharge Planning Initial Assessment Updated by [email or web address]: Agnieszka Viveros on 04/06/20 10:48 am * Is the patient Alert and Oriented? Yes * How many steps to enter\exit or inside your home? * PCP Dr. White * Pharmacy [facility] * Preadmission Environment Home Alone * ADLs Independent * Equipment Bedside Commode * Other Equipment Walker w/seat * List name and contact numbers for known caregivers / representatives who currently or will assist patient after discharge: Luís Ordonez (son) [phone] Fortune (G-dtr) [phone] * Please name any agencies selected above. [facility] * Additional services required to return to the preadmission environment? Yes * Can the patient safely return to the preadmission environment? Yes * Has this patient been hospitalized within the prior 30 days at any hospital? No Coverage Notice Reviewer: [id number] - Agnieszka Viveros Notice Issued Date-Time: 04/06/2020 10:39 Notice Type: Patient Choice Letter Notice Delivered To: Patient Relationship to Patient: Self Ornamental Plaster Sticker Name: Michela Ordonez Delivery Method: MAIL - Mail Shila Days: Prior Verbal Notification: Recipient Understood Notice: Yes Recipient Signature: Yes Med Rec Note Co-signed by Attending: Coverage Notice Comment: Patient choice for [facility] signed, delivered to patient. Original to chart. Last DP export: 04/06/20 12:25 pm Patient Name: MICHELA ORDONEZ Page [id number] at 0739 All edits/amendments must be made on the electronic document DICTATION DATE: 04/07/20738 INVESTIGATIVE WRITER: KATE 04/07/20 0739 RPT#: [id number] DC DATE:04/06/20 STATUS: DIS IN [facility] [address] [place] [address] END OF REPORT
== END 2020-04-06 18:21 | disposition home health service (06) | DRG 468 ==
LOC: D.SDCHOLD 03-30 10:00 → D.M3 04-05 10:40 → D.SDCHOLD 04-05 10:40 → D.M3 04-05 19:36
PROVIDERS: ADMIT Orthopaedic Surgery; ATTEND Orthopaedic Surgery
PROC: 0SUB09Z Supplement Left Hip Joint with Liner, Open Approach (ICD-10-PCS; 2020-04-05)
PROC: 0SPB09Z Removal of Liner from Left Hip Joint, Open Approach (ICD-10-PCS; principal; 2020-04-05 12:30)
DX: T84.021A Dislocation of internal left hip prosthesis, initial encounter (principal); M24.852 Other specific joint derangements of left hip, not elsewhere classified; I10 Essential (primary) hypertension; E78.5 Hyperlipidemia, unspecified; J44.9 Chronic obstructive pulmonary disease, unspecified; E03.9 Hypothyroidism, unspecified; M19.90 Unspecified osteoarthritis, unspecified site; G47.00 Insomnia, unspecified; F32.9 Major depressive disorder, single episode, unspecified; E11.9 Type 2 diabetes mellitus without complications; S00.511A Abrasion of lip, initial encounter; X58.XXXA Exposure to other specified factors, initial encounter

== ENCOUNTER → 2020-04-28 16:47 | Outpatient (CLI) | payer MEDICARE ==
[2020-04-06 14:49] VITALS: BMI 28.9
[~2020-04-28 16:47] MED LIST changes: +HYDROCODON-ACE1 EA10 PO; +KEFLEX500 MG PO
[2020-04-28 17:37] LABS: PROTEIN - BODY FLUID 4.2 G/DL
[2020-04-28 17:51] LABS: EOS BF 8 %; MACROPHAGES BF 2 %; NEUT - BF 31 %
== END | disposition home or self-care (01) ==
LOC: D.LABREF 16:47
PROVIDERS: ATTEND Orthopaedic Surgery
DX: M25.572 Pain in left ankle and joints of left foot (principal)

== ENCOUNTER → 2020-05-09 13:14 | Outpatient (CLI) | payer MEDICARE ==
[2020-04-06 14:49] VITALS: BMI 28.9
== END | disposition home or self-care (01) ==
LOC: D.CT 13:14
PROVIDERS: ATTEND Orthopaedic Surgery
DX: M19.011 Primary osteoarthritis, right shoulder (principal); M19.012 Primary osteoarthritis, left shoulder

== ENCOUNTER 2020-05-20 11:07 | Inpatient (IN) | payer MEDICARE ==
[~2020-05-20] VITALS: Ht 157.5 cm; Wt 68.0 kg
[2020-06-10 10:17] LABS: BASOPHILS 0.2 % (0-2); EOSINOPHILS 2.5 % (0-7); HEMATOCRIT 37.3 % (36.0-48.0); HEMOGLOBIN 12.2 g/dL (12-16); IMMATURE GRANULOCYTES 0.1 % (0-5); LYMPHOCYTES 19.6 % (15-50); MCH 27.2 pg (26.0-34.0); MCHC 32.7 g/dL (31.0-37.0); MCV 83.3 fL (80.0-100.0); MEAN PLATELET VOLUME 9.5 fL (7.4-10.4); MONOCYTES 8.6 % (2-11); RBC 4.48 10x6/uL (4.00-5.40); RDW 14.1 % (11.5-14.5); WBC 8.3 10x3/uL (4.8-10.8)
[2020-06-10 10:18] LABS: PLATELET COUNT 280 10x3/uL (130-400)
[2020-06-10 10:25] LABS: BILIRUBIN NEGATIVE (NEGATIVE); GLUCOSE NEGATIVE (NEGATIVE); KETONE NEGATIVE (NEGATIVE); NITRITE NEGATIVE (NEGATIVE); UROBILINOGEN NORMAL (NORMAL)
[2020-06-10 10:26] LABS: ANION GAP 11.4 mmol/L (8-16); CALCIUM 8.5 mg/dL (8.5-10.1); CARBON DIOXIDE 28.9 mmol/L (21.0-32.0); POTASSIUM - SERUM 4.3 mmol/L (3.5-5.1)
[2020-06-10 10:27] LABS: APTT 32.4 SECONDS (22.8-39.4); INR 0.98 (0.85-1.17); PROTIME 12.9 SECONDS (11.6-15.0)
[2020-06-10 10:28] LABS: BACTERIA FEW /hpf (NEGATIVE); EPITHELIAL CELLS 0-5 /hpf (0-5); HYALINE CAST OCC /lpf (NONE SEEN); RED CELLS - URINE 0-5 /hpf (0-5); WHITE CELLS - URINE 0-5 /hpf (NEGATIVE)
[2020-06-14 07:32] VITALS: BP 133/73; BMI 28.9
--- NOTE | 2020-06-14 11:08 | NUR ---
THROUGH TRAFFIC KEPT TO A MINIMUM. HIBACLENS AND ALCOHOL USED TO CLEAN BEFORE PREPPING. STERILE GOWNED AND GLOVED TO PREP WITH CHLORAPREP.
--- NOTE | 2020-06-14 12:41 | NUR ---
ICE APPLIED AND SLING IN PLACED ORDERED.
[2020-06-14 13:28] VITALS: BP 139/90
[2020-06-14 13:34] VITALS: BP 139/90; BMI 27.5
[2020-06-14 15:00] VITALS: BP 103/58; BP 135/63
[2020-06-14 20:00] VITALS: BP 131/86
--- NOTE | 2020-06-14 20:00 | NUR ---
ALERT RESTING IN BED DENIES PAIN OR NEEDS AT THSI TIME, SLING IN USE TO RIGHT ARM SEE SHIFT ASSESSEMENT, CALL MEENA POWELL
[2020-06-15] VITALS: BP 132/70
--- NOTE | 2020-06-15 03:26 | OP ---
PATIENT NAME: MICHELA ORDONEZ MEDICAL RECORD: [id number] :43 LOCATION:D.M3 D.1210 ADMISSION DATE:06/14/20 SURGEON: LUÍS FALLON DO DATE OF OPERATION: 06/14/2020 PROCEDURE PERFORMED: Right reverse total shoulder arthroplasty. PREOPERATIVE DIAGNOSIS: Severe right shoulder osteoarthritis. POSTOPERATIVE DIAGNOSIS: Severe right shoulder osteoarthritis. INDICATIONS: Ms. Michela Ordonez is a 74-year-old female who is well known to me has had right shoulder pain for quite some time and lack of motion. She got to a point where she could not deal with it. She came to my office and again she had almost no motion. I got an x-ray and a CT to evaluate the glenoid as it was quite worn nearly to, if not past the coracoid. This was quite concerning and I informed of the risk of fracture there and that we would do a reverse and should do okay. She may not get her full motion back as she did not have before. She was okay with that and aware of the other risks including infection, bleeding, damage to nerves or vessels, need for further surgery, failure of implant, failure of hardware, fracture, continued pain and loss of motion, and even and she signed the consent. SURGEON: Luís Fallon DO DESCRIPTION OF PROCEDURE: The patient received a block by anesthesia in the preoperative area and taken to the operative suite, laid in supine position, given general anesthetic and LMA was placed. She was given 900 mg of clindamycin preoperatively. She was then placed in the beach chair position. The right shoulder was then prepped and draped in sterile fashion. A timeout was performed and everyone was in agreement as to correct site, side, patient and procedure. We then began by making an incision in the deltopectoral interval. Careful dissection was made down to the deltoid. It was freed up with a Kirk. The cephalic vein was taken laterally and the proximal 1 centimeter of the pec was released. I then tenodesed the long head of the biceps tendon to the stump of the pec and then opened up the rotator interval and tagged the subscap and opened up the shoulder. There was severe wear of the humeral head, I took off any osteophytes and made a neck cut, then removed that and then exposed the glenoid, it was extremely worn specifically superior and anterior, I put the centering pin in and went to ream and the anterior chunk of the glenoid came off. I then centered the pin and then re-reamed and put the baseplate on, I got a 20 screw in the center hole and then 3 peripheral screws, superior 30 mm, posteriorly 25, and inferiorly 20. These had very good fixation and the base plate was very secure. I then impacted the glenosphere on and again held very well. I then exposed the humerus and reamed and then broached to a 10 trial that fit very well with a standard tray and poly. I then put the 10 stem in and put standard tray and poly on, reduced it. She had good motion, good tension on the conjoined tendon as well as the deltoid. Then irrigated with 10% povidone-iodine and 500 mL of normal saline solution, let it set for 3 minutes and irrigated out with a liter of normal saline, put in Katelynn, vancomycin and tobramycin powder and then put a drain in posteriorly, then closed the interval loosely with #1 Vicryl in an inverted interrupted fashion and then El Harding, certified assistant plant controller student, closed the skin with a 2-0 Vicryl in inverted interrupted fashion, 4-0 Monocryl ran on the skin and Prineo glue on the skin. She was dressed with Telfa and Tegaderm and then OPERATIVE REPORT [id number] MICHELA ORDONEZ securing the drain. She was then awakened and taken to recovery in stable condition. Blood loss was approximately 200 mL. COMPLICATIONS: None. TRANSINT:[id number] Voice Confirmation ID: [id number] DOCUMENT ID: [id number] LUÍS FALLON DO at 0326 CC: [id number] DICTATION DATE: 06/14/20 1530 LINSEED OIL BOILER: 06/15/20 0038 ADM IN [facility] [address] [place] [id number]
[2020-06-15 04:00] VITALS: BP 128/67
[2020-06-15 06:54] LABS: BASOPHILS 0.1 % (0-2); EOSINOPHILS 0 % (0-7); HEMOGLOBIN 9.9 g/dL (12-16); IMMATURE GRANULOCYTES 0.2 % (0-5); LYMPHOCYTES 10.6 % (15-50); MCH 27.7 pg (26.0-34.0); MCV 83.8 fL (80.0-100.0); MEAN PLATELET VOLUME 9.4 fL (7.4-10.4); MONOCYTES 9.4 % (2-11); NEUTROPHILS 79.7 % (40-80); PLATELET COUNT 216 10x3/uL (130-400); RBC 3.58 10x6/uL (4.00-5.40); RDW 14.3 % (11.5-14.5); WBC 12.6 10x3/uL (4.8-10.8)
[2020-06-15 07:01] LABS: ANION GAP 10.1 mmol/L (8-16); CALCIUM 8.2 mg/dL (8.5-10.1); CARBON DIOXIDE 27.2 mmol/L (21.0-32.0); MAGNESIUM - SERUM 1.9 mg/dL (1.8-2.4); PHOSPHOROUS 3.6 mg/dL (2.5-4.9); POTASSIUM - SERUM 4.3 mmol/L (3.5-5.1)
--- NOTE | 2020-06-15 07:50 | NUR ---
PT ASSISTED TO CHAIR TO EAT BREAKFAST. CL IN REACH. WCTM
[2020-06-15 08:25] VITALS: BP 165/75
[2020-06-15 10:39] VITALS: Ht 157.5 cm; Wt 68.0 kg
[2020-06-15 11:33] VITALS: BP 96/55
--- NOTE | 2020-06-15 15:08 | NUR ---
10 ML REMOVED FROM DAVOL DRAIN. EMPTIED PER DR FALLON'S INSTRUCTION. CL IN REACH. WCTM
[2020-06-15] MEDS ORDERED: HYDROCODON-ACE1 EA10 PO (15:33)
[2020-06-15 15:53] VITALS: BP 150/59
--- NOTE | 2020-06-15 17:53 | NUR ---
DISCHARGE INSTRUCTIONS GIVEN. PATIENT VERBALIZED UNDERSTANDING. IV THERAPY REMOVED FROM LEFT HAND WITH TIP INTACT. WHEELED OUT TO ER ENTRANCE TO MEET HER RIDE.
== END 2020-06-15 17:55 | disposition home or self-care (01) | DRG 483 ==
LOC: D.M3 06-14 06:55 → D.SDCHOLD 06-14 06:55 → D.M3 06-14 12:42
PROVIDERS: Family Medicine; ADMIT Orthopaedic Surgery; ATTEND Orthopaedic Surgery
PROC: 0RRJ00Z Replacement of Right Shoulder Joint with Reverse Ball and Socket Synthetic Substitute, Open Approach (ICD-10-PCS; principal; 2020-06-14 08:45)
DX: M19.011 Primary osteoarthritis, right shoulder (principal); I10 Essential (primary) hypertension; E03.9 Hypothyroidism, unspecified; E78.5 Hyperlipidemia, unspecified; E11.9 Type 2 diabetes mellitus without complications

== ENCOUNTER 2021-02-17 16:16 | Emergency (ER) | payer MEDICARE ==
[~2021-02-17] VITALS: Ht 157.5 cm; Wt 67.3 kg
[~2021-02-17 16:16] MED LIST changes: +OMEPRAZOLE40 MG PO
[2021-02-17 16:21] VITALS: BP 155/83; Ht 157.5 cm; Wt 67.3 kg
[2021-02-17] MEDS ORDERED: NAPROSYN500 MG PO (17:24)
== END 2021-02-17 18:00 | disposition home or self-care (01) ==
LOC: D.ER 16:16
DX: S09.90XA Unspecified injury of head, initial encounter (principal); S01.01XA Laceration without foreign body of scalp, initial encounter; W19.XXXA Unspecified fall, initial encounter; Y93.9 Activity, unspecified; Y92.9 Unspecified place or not applicable; I10 Essential (primary) hypertension; K21.9 Gastro-esophageal reflux disease without esophagitis